=== PATIENT | female | born 1975 | race Two or more races ===

== ENCOUNTER 2020-11-10 22:35 | Emergency (ER) | payer MEDICAID, MEDICARE, OTHER ==
[~2020-11-10] VITALS: Ht 152.4 cm; Wt 68.0 kg
--- NOTE | 2020-11-10 23:17 | NUR ---
BIBSELF C/O COUGH AND BODY ACHE. REC'D COVID POS RESULTS X2 DAYS AGO. PT HAS LOW GRADE FEVER ON ARRIVAL, TYLENOL X6HR [employer]. PT AAOX4 AMBULATORY WITH STEADY GAIT. NO ACUTE DISTRESS NOTED AT THIS TIME
[2020-11-10] MEDS ORDERED: CYCLOBENZAPRINE 10 MG TABLET PO ONE (23:30)
[2020-11-10] MEDS ORDERED: KETOROLAC TROMETHAMINE INJ 60 MG/2 ML VIAL IM ONE (23:30)
--- NOTE | 2020-11-10 23:34 | NUR ---
RADIOLOGY AT BEDSIDE FOR CXR
[2020-11-10] MEDS ORDERED: CYCLOBENZAPRINE 10 MG TABLET ONE (23:38)
[2020-11-10] MEDS ORDERED: KETOROLAC TROMETHAMINE INJ 30 MG/ML VIAL ONE (23:38)
--- NOTE | 2020-11-11 00:51 | NUR ---
Patient discharged to home in stable condition. Written and verbal after care instructions given. Patient verbalizes understanding of instruction.Pt ambulatory with a steady gait
[2020-11-11 00:53] VITALS: BP 137/84
== END 2020-11-11 00:53 | disposition home or self-care (01) ==
LOC: ER 22:50
DX: U07.1 COVID-19 (principal); H54.7 Unspecified visual loss
CPT/HCPCS: 71045; 96372; 99283; J1885